=== PATIENT | female | born 1960 | race Caucasian/White ===

== ENCOUNTER → 2020-02-29 | Outpatient (CLI) | payer MEDICARE ==
--- NOTE | 2020-02-29 11:25 | Diagnostic Imaging Report ---
TECHNIQUE: Magnetic resonance imaging of the LEFT foot was performed WITHOUT injected contrast. HISTORY: Left foot pain, evaluate for stress reaction. COMPARISON: None available. DISCUSSION: No fracture. Incomplete fat suppression of the toes distally. Mild edema in the bases of the second through fourth metatarsal bases without T1 fracture line. The forefoot and Lisfranc alignment is intact. 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 Soft tissues are unremarkable. No concerning mass or fluid collection. The plantar fascia is intact. The intermetatarsal spaces are clear. IMPRESSION: Stress reaction within the second through fourth metatarsal bases without fracture. Signed by: Dr. Betito Conrad M.D. on 02/29/2020 11:21 AM
== END ==
LOC: MRI 09:14
PROVIDERS: ATTEND Podiatrist Foot & Ankle Surgery
DX: S90.32XA Contusion of left foot, initial encounter (principal); M84.375A Stress fracture, left foot, initial encounter for fracture

== ENCOUNTER → 2021-03-24 | Day surgery (SDC) | payer OTHER, MEDICARE ==
[2021-03-23 10:43] LABS: ANION GAP 10.8 mmol/L (8-16); CREATININE, SERUM 1.31 mg/dL (0.57-1.11); POTASSIUM 4.8 mmol/L (3.5-5.1)
[~2021-03-24] MED LIST: ACETAMINOPHEN/CODEINE 300MG - 30MG TAB ONE; ATENOLOL50 MG PO; BENAZEPRIL HCL10 MG PO; FENTANYL CITRATE/PF 100MCG/2 ML INJ ONE; FUROSEMIDE40 MG PO; HYDROCODON-ACE1 EAC9 PO; IRON325 M1 PO; LEVOTHYROXINE50 MCG PO; NEURONTIN300 MG PO; NEXIUM40 MG PO; PHENTERMINE H37.5 MG PO; SIMVASTATIN20 MG PO; SODIUM CHLORIDE 0.9% 50ML 50 ML ONE; VITAMIN B12 PO
[2021-03-24 08:40] VITALS: BP 155/70
== END | disposition home or self-care (01) ==
LOC: OR 06:48
PROVIDERS: ATTEND Specialist
DX: M65.321 Trigger finger, right index finger (principal); R00.1 Bradycardia, unspecified; I10 Essential (primary) hypertension; E11.9 Type 2 diabetes mellitus without complications; D64.9 Anemia, unspecified; K58.9 Irritable bowel syndrome, unspecified; F41.9 Anxiety disorder, unspecified; Z01.810 Encounter for preprocedural cardiovascular examination; Z01.812 Encounter for preprocedural laboratory examination; Z20.822 Contact with and (suspected) exposure to COVID-19; Z68.43 Body mass index [BMI] 50.0-59.9, adult
CPT/HCPCS: 26055; 36415; 80048; 93005; J0690; J3010; U0002